=== PATIENT | female | born 1975 | race Caucasian/White ===

== ENCOUNTER 2017-10-09 08:00 | Outpatient (CLI) | payer BC | END 2017-10-09 08:01 | disposition home or self-care (01) | LOC: BICMAMMO 08:00 | PROVIDERS: ATTEND Family Medicine | DX: Z12.31 Encounter for screening mammogram for malignant neoplasm of breast (principal) | CPT/HCPCS: 77063; 77067; G0202 ==

== ENCOUNTER 2017-10-21 05:40 | Day surgery (SDC) | payer OTHER ==
[2017-10-18 12:30] VITALS: BMI 38.2
[2017-10-21] MEDS ORDERED: CEFAZOLIN/Water 2 GM/20 ML SYRINGE ONE (06:06)
[2017-10-21] MEDS ORDERED: Heparin 5,000 UNITS/ML VIAL ONE (06:07)
[2017-10-21] MEDS ORDERED: Fentanyl 100 MCG/2 ML VIAL ONE ×4 (09:10→16:24)
[2017-10-21] MEDS ORDERED: Midazolam HCl 2 mg/2 ml Vial ONE (09:10)
[2017-10-21] MEDS ORDERED: Gentamicin 80 MG/2 ML VIAL ONE (09:13)
[2017-10-21] MEDS ORDERED: Lidocaine 1% (PF) 30 ML VIAL ONE (09:13)
[2017-10-21] MEDS ORDERED: EPINEPHrine 1 MG/ML AMP ONE ×2 (09:13→12:32)
[2017-10-21] MEDS ORDERED: Sodium Chloride 0.9% 10 ML ONE (09:13)
[2017-10-21] MEDS ORDERED: Bupivacaine/Epinephrine 0.25% 30 ML VIAL ONE (09:13)
[2017-10-21] MEDS ORDERED: PROPOFOL 200 MG/20 ML VIAL ONE (17:03)
[2017-10-21] MEDS ORDERED: Ondansetron HCl/PF 4 MG/2 ML Vial ONE (17:03)
[2017-10-21] MEDS ORDERED: Lidocaine 1% PF 5 ML VIAL ONE (17:03)
[2017-10-21] MEDS ORDERED: diphenhydrAMINE 50 MG/ML VIAL ONE (17:03)
[2017-10-21] MEDS ORDERED: Dexamethasone 20 MG/5 ML VIAL ONE (17:03)
[2017-10-21] MEDS ORDERED: Metoclopramide HCl 10 MG/2 ML VIAL ONE (17:03)
[2017-10-21] MEDS ORDERED: HYDROcodone/Acetaminophen 5/325 mg Tablet ONE (17:19)
--- NOTE | 2017-10-22 15:21 | OP ---
DATE OF PROCEDURE: 10/21/2017 PREOPERATIVE DIAGNOSES: 1. Breast ptosis. 2. Excess abdominal skin. POSTOPERATIVE DIAGNOSES: 1. Breast ptosis. 2. Excess abdominal skin. PROCEDURE: 1. Mastopexy. 2. Abdominoplasty. PROCEDURE: Following induction of adequate anesthesia, the patient was prepped and draped in the usu al sterile fashion in the supine position. Attention was first turned to the right breast. The mayco ent had been preoperatively marked for a modified Burroughs pattern mastopexy. The nipple was incised ricardo und the surgery, a 42 mm nipple sizer. The skin over the inferior pole of the breast was de-epitheli alizing. Skin flaps were then raised inferomedially and laterally. The breast parenchyma using the residual deep dermis was then sutured to the chest wall as an internal bra. The skin flaps were then redraped over the elevated breast mound closing the inverted T with 3-0 PDS suture and 3-0 Monocryl suture. The areolar was brought out through a 42 mm nipple defect and inset using interrupted and ru nning 3-0 Monocryl suture. A similar procedure was done on each side. Care was taken to ensure meti culous hemostasis and copiously irrigate all surgical almeida on the breast and abdomen prior to any c losure. Attention was turned to the abdomen. The low transverse incision was made. Dissection was carried s harply down to the abdominal fascia centrally, laterally care was taken to bevel superiorly to protec t the lymphatics of the thigh. Dissection was carried cephalad. The umbilicus was then circum-incis ed with dissection being made continuous to more posterior and inferior dissection. Dissection was t hen carried superiorly exposing the anterior abdominal wall which was then plicated with interrupted and running 0 Prolene sutures. Subfascial local anesthetic was injected under direct visualization. A drain was placed. The excess skin was marked and excised. The closure was achieved by quilting t he abdominal flap down to the anterior abdominal wall using 2-0 V-Loc suture. The low transverse Sca rpa's fascia closure was achieved with interrupted 2-0 PDS suture and V-Loc suture. The remainder of the closure was done with 3-0 PDS suture and 3-0 Monocryl suture. The patient tolerated the procedu re well.
== END 2017-10-21 18:50 | disposition home or self-care (01) ==
LOC: SDC 05:40
PROVIDERS: ATTEND Plastic Surgery
PROC: 0H0U0ZZ Alteration of Left Breast, Open Approach (ICD-10-PCS; principal; 2017-10-21)
PROC: 0H0T0ZZ Alteration of Right Breast, Open Approach (ICD-10-PCS; principal; 2017-10-21)
PROC: 0J080ZZ Alteration of Abdomen Subcutaneous Tissue and Fascia, Open Approach (ICD-10-PCS; principal; 2017-10-21)
DX: Z41.1 Encounter for cosmetic surgery (principal); N64.81 Ptosis of breast; L98.7 Excessive and redundant skin and subcutaneous tissue; Z88.5 Allergy status to narcotic agent; Z98.84 Bariatric surgery status; Z80.6 Family history of leukemia; Z82.49 Family history of ischemic heart disease and other diseases of the circulatory system; Z80.8 Family history of malignant neoplasm of other organs or systems
CPT/HCPCS: 88305; 96374; A4216; J0131; J0171; J1100; J1200; J1580; J1644; J2001; J2250; J2405; J2704; J2765; J3010; J3370; J3490

== ENCOUNTER 2018-04-14 13:35 | Inpatient (IN) | payer BC, OTHER ==
[2018-04-14 14:13] LABS: #Basophils 0.1 thou/uL (0.0-0.2); #Eosinphils 0.6 thou/uL (0.0-0.7); #Lymphocytes 1.5 thou/uL (1.20-3.40); #Monocytes 0.9 thou/uL (0.11-0.59); #Neutrophils 9.2 thou/uL (1.40-6.50); %Basophils 0.6 % (0.0-1.0); %Eosinophils 4.7 % (0.0-10.0); %Lymphocytes 12.5 % (21.0-51.0); %Monocytes 7.1 % (0.0-10.0); %Neutrophils 75.2 % (42.0-75.0); Hemoglobin 13.3 g/dL (12.0-16.0); Mean Corpuscular HGB CONC 32.7 g/dL (32.0-36.0); Mean Corpuscular Volume 91.9 fL (78.0-98.0); Mean Platelet Volume 8.7 fL (7.4-10.4); Platelet Count 233 thou/uL (130-400); RBC Distribution Width 12.6 % (11.5-14.5); Red Blood Cell (RBC) Count 4.44 mill/uL (4.20-5.40); White Blood Cell (WBC) Count 12.2 thou/uL (4.8-10.8)
[2018-04-14 14:37] LABS: BHCG - Serum Negative (NEGATIVE); Pregs Control Background? CLEAR/WHITE (CLR/WHITE); Pregs Control Bar Appear? YES (CONTROL BAR)
[2018-04-14 14:39] LABS: ALT (SGPT) 9 U/L (8-55); AST (SGOT) 11 U/L (5-34); Albumin 4.2 g/dL (3.5-5.0); Alkaline Phosphatase 95 U/L (40-150); Anion Gap 13 mmol/L (10-20); BUN (Urea Nitrogen) 8 mg/dL (7.0-18.7); Bilirubin, Total 1.8 mg/dL (0.2-1.2); Calc. Creatinine Clearance 0 mL/min (70-130); Calcium 9.3 mg/dL (7.8-10.44); Carbon Dioxide 27 mmol/L (22-29); Chloride 101 mmol/L (98-107); Estimated GFR-MDRD Greater than 90; Globulin 3.3 g/dL (2.4-3.5); Glucose 93 mg/dL (70-105); Lipase 8 U/L (8-78); Potassium 3.8 mmol/L (3.5-5.1); Protein, Total 7.5 g/dL (6.0-8.3); Sodium 137 mmol/L (136-145)
[2018-04-14] MEDS ORDERED: Dexamethasone 20 MG/5 ML VIAL ONE (14:44)
[2018-04-14] MEDS ORDERED: Metoclopramide HCl 10 MG/2 ML VIAL ONE (14:44)
[2018-04-14] MEDS ORDERED: PROPOFOL 200 MG/20 ML VIAL ONE (14:44)
[2018-04-14] MEDS ORDERED: Glycopyrrolate 0.2 MG/ML 5 ML SYRINGE ONE (14:44)
[2018-04-14] MEDS ORDERED: Ondansetron HCl/PF 4 MG/2 ML Vial ONE (14:44)
[2018-04-14] MEDS ORDERED: Succinylcholine Chloride 20 MG/ML 10 ml SYRINGE FS ONE (14:44)
[2018-04-14] MEDS ORDERED: Lidocaine 1% PF 5 ML VIAL ONE (14:44)
[2018-04-14] MEDS ORDERED: Ketorolac Tromethamine 30 MG/ML VIAL ONE (15:41)
--- NOTE | 2018-04-14 16:20 | CT ---
ABDOMEN AND PELVIC CT NONCONTRAST RENAL CALCULUS PROTOCOL: INDICATION: Right-sided abdominal pain with nausea and vomiting. COMPARISON: No prior imaging comparison. FINDINGS: There is abnormal inflammation and fluid density with associated adenopathy of the right lower quadra nt, incompletely assessed by noncontrast technique. This suggests a dilated, inflamed appendix with surrounding complex fluid and adenopathy which suggests sequelae from localized perforation. There i s no disseminated free air. Dilatation of the presumed unopacified appendix measures 18 mm in calibe r. No urolithiasis or obstructive uropathy on the left. There is punctate, nonobstructing nephrolithias is at lower pole of right kidney. Evidence of prior cholecystectomy. Suture material is seen at the gastric region. There is evidence of prior herniorrhaphy of the ventral abdominal wall. Noninflame d fat-containing periumbilical hernia is seen. There is mild dependent free fluid of the pelvis. Incidental note of bibasilar atelectasis. There are a few scattered colonic diverticula. IMPRESSION: 1. Findings which suggest acute appendicitis with associated perforation. This is limited in assess ment by absence of IV or enteric contrast. Recommend surgical consultation. 2. Punctate nonobstructing right nephrolithiasis. 3. Telephone call of findings placed to ER physician, Dr. Dimitrios Laura, at 1555 hours, 04/14/18. CODE CR POS: [facility]
--- NOTE | 2018-04-14 16:24 | RAD ---
FRONTAL VIEW CHEST: COMPARISON: No prior comparison. CLINICAL HISTORY: Preoperative evaluation. FINDINGS: The lungs are clear. No free air beneath the hemidiaphragms. Cardiac silhouette is accentuated by p ortable technique. Imaged osseous structures are intact. IMPRESSION: No focal consolidation. POS: L[facility]
[2018-04-14 16:46] LABS: Bilirubin Negative (Negative); Blood, Urine Negative (Negative); Clarity CLEAR (Clear); Glucose, Urine (Dipstick) Negative (Negative); Leukocyte Small (Negative); Nitrite Negative (Negative); Protein, Urine (Dipstick) Negative (Neg-Trace); Specific Gravity, Urine 1.016 (1.002-1.036)
[2018-04-14 16:48] LABS: Bacteria/HPF None Seen HPF (None Seen); Hyaline Casts/LPF 0-3 HYALINE CAST LPF (0-3 Hyaline); Pathc Cast-AUWi Flag 0.14 (0-2.49); Squamous Epithelial 0-3 HPF (0-3); WBC/HPF 0-3 HPF (0-3)
[2018-04-14] MEDS ORDERED: Midazolam HCl 2 mg/2 ml Vial ONE (16:54)
[2018-04-14] MEDS ORDERED: Fentanyl 100 MCG/2 ML VIAL ONE (16:55)
[2018-04-14 16:57] LABS: RBC/HPF 0-3 HPF (0-3)
[2018-04-14] MEDS ORDERED: MEROPENEM 1 GM/50 ML 1 GM in Premix Bag 1 BAG IVPB SCH (17:00)
[2018-04-14] MEDS ORDERED: Bupivacaine/Epinephrine 0.25% 30 ML VIAL ONE (17:01)
[2018-04-14] MEDS ORDERED: hydrALAZINE 20 MG/ML VIAL SLOW IVP PRN (18:35)
[2018-04-14] MEDS ORDERED: Dextrose 5% in Water 1,000 ML IV PRN (18:35)
[2018-04-14] MEDS ORDERED: Ondansetron HCl/PF 4 MG/2 ML Vial IVP PRN (18:35)
[2018-04-14] MEDS ORDERED: Dextrose 50% Abboject 50 ML SYRINGE SLOW IVP PRN (18:35)
[2018-04-14] MEDS ORDERED: Promethazine HCl 25 MG/ML VIAL IM PRN (18:35)
[2018-04-14] MEDS ORDERED: Morphine 4 MG/ML Carpuject SLOW IVP PRN (18:35)
[2018-04-14] MEDS ORDERED: HYDROcodone/Acetaminophen 10/325 mg Tablet PO PRN (18:35)
[2018-04-14] MEDS ORDERED: Meperidine HCl/PF 25 MG/ML VIAL ONE (18:50)
[2018-04-14] MEDS ORDERED: D5 1/2 NS w/20 mEq KCL 1,000 ML ONE (19:06)
[2018-04-14 19:49] VITALS: BMI 36.4
[2018-04-14] MEDS: D5 1/2 NS w/20 mEq KCL 1,000 ML IV SCH ×2 (20:19→20:20)
[2018-04-14] MEDS: Famotidine 20 MG TAB PO SCH (20:20)
[2018-04-14] MEDS: Famotidine/PF 20 mg/2ml Vial SLOW IVP SCH (20:22)
[2018-04-14] MEDS: HYDROcodone/Acetaminophen 10/325 mg Tablet PO PRN (20:34)
--- NOTE | 2018-04-14 22:03 | HP ---
CHIEF COMPLAINT: Right lower quadrant abdominal pain. HISTORY: The patient is a 42-year-old female 2-day history of right lower quadrant pain associated w ith nausea, vomiting. CT shows appendicitis. PAST MEDICAL HISTORY: Obesity. PAST SURGICAL HISTORY: Sleeve gastrectomy, abdominoplasty, cholecystectomy. MEDICATIONS: Trazodone, pantoprazole. ALLERGIES: MORPHINE causing itching. SOCIAL HISTORY: . She is a therapist. No tobacco, social alcohol. FAMILY HISTORY: Breast cancer and leukemia. PHYSICAL EXAMINATION: VITAL SIGNS: She is afebrile, pulse 90, blood pressure 114/78. GENERAL: Obese female, lying still. HEENT: Unremarkable. LUNGS: Clear. HEART: Regular rate and rhythm. ABDOMEN: Soft, tender to percussion in right lower quadrant, no palpable mass. EXTREMITIES: Unremarkable. LABORATORY AND X-RAY FINDINGS: White count 12.2, H&H 13 and 40, platelet count 233. Electrolytes ar e fine. CT shows acute appendicitis with perforation. ASSESSMENT: Acute appendicitis. PLAN: Laparoscopic appendectomy. CONSENT: I discussed the planned procedure as well as risk of bleeding, infection, injury to bowel, bladder, need for drains, and need to open. She understands and gives informed consent.
[2018-04-14] MEDS ORDERED: traZODone HCl 50 MG TAB PO SCH (22:15)
[2018-04-14] MEDS: Ketorolac Tromethamine 30 MG/ML VIAL IVP SCH (22:36)
[2018-04-14] MEDS: Piperacillin/Tazobactam 3.375 GM in Sodium Chloride 0.9% 100 ML IVPB SCH (22:37)
--- NOTE | 2018-04-15 01:30 | OP ---
PREOPERATIVE DIAGNOSIS: Acute appendicitis. SURGEON: Colby Cuellar MD PROCEDURE PERFORMED: Laparoscopic appendectomy and drainage of periappendiceal abscess. INDICATIONS: This is a 42-year-old female who presented with a 50-hour history of right lower quadra nt pain associated with nausea, vomiting. CT showed a ruptured appendicitis. FINDINGS: Acute appendicitis with periappendiceal abscess. PROCEDURE IN DETAIL: After informed consent was obtained, the patient was taken to the operating enrique m, given general endotracheal anesthesia. She was placed in the supine position. The abdomen was pr epped and draped in usual fashion. Local anesthesia infiltrated subcutaneously and deep. Supraumbil ical incision was performed. Subcu divided sharply. The fascia grasped and two stay sutures of 0 Vi cryl placed to either side of midline. Midline incised. Digital palpation revealed no local adhesio ns. A blunt 10/12-mm trocar inserted. Pneumoperitoneum was created to a pressure of 15 mmHg. Zero- degree laparoscope inserted under direct vision, two 5 mm ports placed, one suprapubic and one right lateral abdomen. The cecum was found. There was phlegmon at the base that was encompassed in omentu m and small bowel. The small bowel was easily in reflecting this phlegmon, there was some purulent fluid which was removed with the suction probably just a few milliliters. The mesoappendix was divided utilizing the LigaSure. Base of the appendix was divided utilizing the linear 45-mm whit e load stapler. The appendix was placed in an Endosac and removed from the abdomen in an Endosac thr ough the umbilical port. Hemostasis was assured. The wound irrigated. Drain was placed and brought out through the suprapubic incision placed in the pelvis and along the right gutter. Hemostasis was assured. Trocars and retractors were removed. The fascia closed with interrupted 0 Vicryl suture. Skin closed with interrupted 4-0 Rapide. Dermabond applied. The patient tolerated the procedure we ll and was transferred to recovery in good condition. Sponge and needle count verified correct x2.
[2018-04-15] MEDS: Ketorolac Tromethamine 30 MG/ML VIAL IVP SCH ×2 (04:59→12:23)
[2018-04-15] MEDS: Piperacillin/Tazobactam 3.375 GM in Sodium Chloride 0.9% 100 ML IVPB SCH ×2 (04:59→12:23)
[2018-04-15] MEDS: D5 1/2 NS w/20 mEq KCL 1,000 ML IV SCH ×2 (05:00→15:56)
[2018-04-15 06:06] LABS: Anion Gap 12 mmol/L (10-20); BUN (Urea Nitrogen) 8 mg/dL (7.0-18.7); Calc. Creatinine Clearance 174 mL/min (70-130); Calcium 8.9 mg/dL (7.8-10.44); Carbon Dioxide 22 mmol/L (22-29); Chloride 106 mmol/L (98-107); Estimated GFR-MDRD Greater than 90; Glucose 171 mg/dL (70-105); Potassium 4.4 mmol/L (3.5-5.1); Sodium 136 mmol/L (136-145)
[2018-04-15 06:16] LABS: #Lymphocytes 0.8 thou/uL (1.20-3.40); #Monocytes 0.4 thou/uL (0.11-0.59); #Neutrophils 11.4 thou/uL (1.40-6.50); %Basophils 0.1 % (0.0-1.0); %Eosinophils 0.2 % (0.0-10.0); %Monocytes 3.3 % (0.0-10.0); %Neutrophils 90.5 % (42.0-75.0); Hemoglobin 12.2 g/dL (12.0-16.0); Mean Corpuscular HGB CONC 32.2 g/dL (32.0-36.0); Mean Corpuscular Hemoglobin 30.1 pg (27.0-31.0); Mean Corpuscular Volume 93.4 fL (78.0-98.0); Mean Platelet Volume 9.4 fL (7.4-10.4); Platelet Count 221 thou/uL (130-400); RBC Distribution Width 12.5 % (11.5-14.5); Red Blood Cell (RBC) Count 4.06 mill/uL (4.20-5.40); White Blood Cell (WBC) Count 12.6 thou/uL (4.8-10.8)
[2018-04-15] MEDS ORDERED: Enoxaparin Sodium 40 MG/0.4 ML SYRINGE SC SCH (09:00)
[2018-04-15] MEDS: Famotidine 20 MG TAB PO SCH (09:00)
[2018-04-15] MEDS: HYDROcodone/Acetaminophen 10/325 mg Tablet PO PRN (09:01)
[2018-04-15] MEDS: Famotidine/PF 20 mg/2ml Vial SLOW IVP SCH (09:03)
[2018-04-15 12:22] VITALS: BP 109/74; TEMP 98.6
--- NOTE | 2018-04-15 13:07 | DIS ---
DISCHARGE DIAGNOSIS: Acute appendicitis with perforation. SURGEON: Dr. Colby Cuellar PROCEDURES DURING ADMISSION: Laparoscopic appendectomy. HOSPITAL COURSE: The patient was admitted, given IV antibiotics, taken to the operating room where s he was found to have perforated diverticulitis with abscess. She had drainage and excision of the ap pendix. Drain was left. She is doing much better. She is ambulating. Pain is minimal. She is afe brile. She is discharged home on hydrocodone, Zofran, and doxycycline. She will follow up with i n 3 days for removal of drain.
[2018-04-15] MEDS ORDERED: traZODone HCl 50 MG TAB PO SCH (21:00)
--- NOTE | 2018-04-19 11:48 | EKG ---
Test Reason : Blood Pressure : / mmHG Vent. Rate : 085 BPM Atrial Rate : 085 BPM P-R Int : 146 ms QRS Dur : 086 ms QT Int : 380 ms P-R-T Axes : 039 -04 006 degrees QTc Int : 452 ms Normal sinus rhythm Normal ECG Confirmed by ASHLEY CRAWLEY, SILVERIO ([id number]), editor & co founder ZENON CROOKS ([id number]) on 04/19/2018 11:48:06 AM Referred By: Confirmed By:SILVERIO RAMIREZ MD
== END 2018-04-15 16:30 | disposition home or self-care (01) | DRG 340 ==
LOC: ERS 13:35 → SDC/OP 16:51 → SJJU 19:04
PROVIDERS: ADMIT Surgery; ATTEND Surgery
PROC: 0DTJ4ZZ Resection of Appendix, Percutaneous Endoscopic Approach (ICD-10-PCS; principal; 2018-04-14)
PROC: 0W9G40Z Drainage of Peritoneal Cavity with Drainage Device, Percutaneous Endoscopic Approach (ICD-10-PCS; 2018-04-14)
DX: K35.3 Acute appendicitis with localized peritonitis (principal); K38.2 Diverticulum of appendix; E66.9 Obesity, unspecified; Z88.5 Allergy status to narcotic agent; Z68.36 Body mass index [BMI] 36.0-36.9, adult; Z98.84 Bariatric surgery status; Z90.49 Acquired absence of other specified parts of digestive tract; Z85.3 Personal history of malignant neoplasm of breast; Z80.6 Family history of leukemia
CPT/HCPCS: 36415; 71045; 74176; 80048; 80053; 81003; 81015; 83690; 84703; 85025; 88304; 93005; 96361; 96374; J1100; J1650; J1885; J2001; J2175; J2185; J2250; J2270; J2405; J2543; J2704; J2765; J3010; J7050

== ENCOUNTER 2018-10-09 10:46 | Outpatient (CLI) | payer BC | END 2018-10-09 10:47 | disposition home or self-care (01) | LOC: BICMAMMO 10:46 | PROVIDERS: ATTEND Family Medicine | DX: Z12.31 Encounter for screening mammogram for malignant neoplasm of breast (principal); Z80.3 Family history of malignant neoplasm of breast | CPT/HCPCS: 77063; 77067 ==

== ENCOUNTER 2019-09-30 08:18 | Outpatient (CLI) | payer BC ==
--- NOTE | 2019-09-30 09:11 | MMO ---
Bilateral MAMMO Bilat Screen [facility]. CLINICAL HISTORY: Patient is 44 years old and is seen for screening. The patient has no family history of breast cancer. The patient has no personal history of cancer. The patient has a history of bilateral mastopexy in 2016. VIEWS: The views performed were: bilateral craniocaudal with tomosynthesis and bilateral mediolateral oblique with tomosynthesis. FILMS COMPARED: The present examination has been compared to prior imaging studies performed at [facility] on 09/28/2015, 10/03/2016, 10/09/2017 and 10/09/2018. This study has been interpreted with the assistance of computer-aided detection. MAMMOGRAM FINDINGS: There are scattered fibroglandular densities. There are no suspicious masses, suspicious calcifications, or new areas of architectural distortion. IMPRESSION: THERE IS NO MAMMOGRAPHIC EVIDENCE OF MALIGNANCY. A ROUTINE FOLLOW-UP MAMMOGRAM IN 1 YEAR IS RECOMMENDED. THE RESULTS OF THIS EXAM WERE SENT TO THE PATIENT. ACR BI-RADS Category 1 - Negative MAMMOGRAPHY NOTE: 1. A negative mammogram report should not delay a biopsy if a dominant of clinically suspicious mass is present. 2. Approximately 10% to 15% of breast cancers are not detected by mammography. 3. Adenosis and dense breasts may obscure an underlying neoplasm. Reported by: LUZ ELENA WILL MD Electonically Signed: [id number]
== END 2019-09-30 08:19 | disposition home or self-care (01) ==
LOC: BICMAMMO 08:18
PROVIDERS: ATTEND Family Medicine
DX: Z12.31 Encounter for screening mammogram for malignant neoplasm of breast (principal)
CPT/HCPCS: 77063; 77067

== ENCOUNTER 2020-08-09 19:30 | Outpatient (CLI) | payer BC | END 2020-08-09 19:31 | disposition home or self-care (01) | LOC: SLEEPLAB 19:30 | PROVIDERS: ATTEND Surgery | DX: G47.33 Obstructive sleep apnea (adult) (pediatric) (principal); R06.83 Snoring; R53.83 Other fatigue; G47.12 Idiopathic hypersomnia without long sleep time | CPT/HCPCS: 95810 ==

== ENCOUNTER 2020-10-05 08:10 | Outpatient (CLI) | payer BC ==
--- NOTE | 2020-10-05 09:31 | MMO ---
Bilateral MAMMO Bilat Screen [facility]. CLINICAL HISTORY: Patient is 45 years old and is seen for screening. The patient has no family history of breast cancer. The patient has no personal history of cancer. The patient has a history of bilateral mastopexy in 2016. VIEWS: The views performed were: bilateral craniocaudal with tomosynthesis and bilateral mediolateral oblique with tomosynthesis. FILMS COMPARED: The present examination has been compared to prior imaging studies performed at [facility] on 10/03/2016, 10/09/2017, 10/09/2018 and 09/30/2019. This study has been interpreted with the assistance of computer-aided detection. MAMMOGRAM FINDINGS: There are scattered fibroglandular densities. Finding 1: There are stable benign appearing calcifications seen in both breasts. Finding 2: There are stable benign appearing densities seen in both breasts. Finding 3: There are stable post operative changes seen in both breasts. There are no suspicious masses, suspicious calcifications, or new areas of architectural distortion. IMPRESSION: THERE IS NO MAMMOGRAPHIC EVIDENCE OF MALIGNANCY. A ROUTINE FOLLOW-UP MAMMOGRAM IN 1 YEAR IS RECOMMENDED. THE RESULTS OF THIS EXAM WERE SENT TO THE PATIENT. ACR BI-RADS Category 2 - Benign finding MAMMOGRAPHY NOTE: 1. A negative mammogram report should not delay a biopsy if a dominant of clinically suspicious mass is present. 2. Approximately 10% to 15% of breast cancers are not detected by mammography. 3. Adenosis and dense breasts may obscure an underlying neoplasm. Reported by: LEONARDO REDDY MD Electonically Signed: [id number]
== END 2020-10-05 08:11 | disposition home or self-care (01) ==
LOC: BICMAMMO 08:10
PROVIDERS: ATTEND Physician Assistant
DX: Z12.31 Encounter for screening mammogram for malignant neoplasm of breast (principal); Z98.890 Other specified postprocedural states
CPT/HCPCS: 77063; 77067

== ENCOUNTER 2021-10-05 14:25 | Outpatient (CLI) | payer BC | END 2021-10-05 14:26 | disposition home or self-care (01) | LOC: BICMAMMO 14:25 | PROVIDERS: ATTEND Physician Assistant | DX: Z12.31 Encounter for screening mammogram for malignant neoplasm of breast (principal); Z80.3 Family history of malignant neoplasm of breast | CPT/HCPCS: 77063; 77067 ==

== ENCOUNTER 2022-11-21 08:04 | Outpatient (CLI) | payer BC | END 2022-11-21 08:05 | disposition home or self-care (01) | LOC: BICMAMMO 08:04 | PROVIDERS: ATTEND Physician Assistant | DX: Z12.31 Encounter for screening mammogram for malignant neoplasm of breast (principal); Z80.3 Family history of malignant neoplasm of breast | CPT/HCPCS: 77063; 77067 ==

== ENCOUNTER 2023-11-27 08:16 | Outpatient (CLI) | payer BC | END 2023-11-27 08:17 | disposition home or self-care (01) | LOC: BICMAMMO 08:16 | PROVIDERS: ATTEND Physician Assistant | DX: Z12.31 Encounter for screening mammogram for malignant neoplasm of breast (principal); Z80.3 Family history of malignant neoplasm of breast | CPT/HCPCS: 77063; 77067 ==